=== PATIENT | female | born 1985 | race Caucasian/White ===

== ENCOUNTER 2017-06-19 13:01 | Emergency (ER) | payer OTHER ==
[2017-06-19 13:04] VITALS: BP 153/80; PULSE 97; RESP 15; TEMP 98.4; O2SAT 99
--- NOTE | 2017-06-19 13:46 | RADRPT ---
EXAM DATE/TIME: 06/19/2017 13:18 [place] COMPARISON: No previous studies available for comparison. INDICATIONS : Left ankle pain after twisting ankle with playing basketball. MEDICAL HISTORY : None. SURGICAL HISTORY : None. ENCOUNTER: Initial ACUITY: 3 days PAIN SCORE: 10/10 LOCATION: Left lateral ankle. FINDINGS: Soft tissue swelling lateral malleolus small avulsion tip of the lateral malleolus. Medial malleolus is intact. Alignment anatomic. CONCLUSION: Tiny avulsion fracture tip lateral malleolus. Soft tissue swelling evident.. Tony Elkins MD FACR on June 19, 2017 at 13:43 Board Certified Radiologist. This report was verified electronically.
[2017-06-19] MEDS ORDERED: TOPI100 PO (14:04)
[2017-06-19] MEDS ORDERED: SYNT175T PO (14:04)
[2017-06-19] MEDS ORDERED: VIST50CA PO (14:04)
--- NOTE | 2017-06-19 14:14 | PD ---
HPI Chief Complaint: Injury Time Seen by Provider: 14:00 Travel History International Travel<30 days: No Contact w/Intl Traveler<30days: No Traveled to known affect area: No History of Present Illness HPI 31-year-old female presents to the emergency room for evaluation of left ankle pain and swelling after inversion injury 4 days ago. Patient has had persistent pain since then that is worse with range of motion and ambulation. No radiation. She has been able to ambulate on it. She has been taking naproxen. She is currently residing at [facility]. No other chronic medical conditions or daily medications. [facility] Past Medical History LMP: 06/08/2017 Social History Tobacco Use: Yes Allergies-Medications (Allergen,Severity, Reaction): Coded Allergies: No Known Allergies (Unverified , 06/19/17) Reported Meds & Prescriptions Reported Meds & Active Scripts Active Ibuprofen 800 Mg Tab 800 Mg PO Q8H PRN Reported Vistaril (Hydroxyzine Pamoate) 50 Mg Cap 50 Mg PO BID Topamax (Topiramate) 100 Mg Tab 100 Mg PO BID Synthroid (Levothyroxine Sodium) 175 Mcg Tab 175 Mcg PO DAILY Review of Systems Except as stated in HPI: all other systems reviewed are Neg Physical Exam Narrative GENERAL: Well-nourished, well-developed female in no acute distress. Afebrile. Ambulatory. SKIN: Focused skin assessment warm/dry. Moderate ecchymosis of the left lateral ankle. HEAD: Normocephalic. EYES: No scleral icterus. No injection or drainage. NECK: Supple, trachea midline. No JVD or lymphadenopathy. CARDIOVASCULAR: Regular rate and rhythm without murmurs, gallops, or rubs. RESPIRATORY: Breath sounds equal bilaterally. No accessory muscle use. MUSCULOSKELETAL: No cyanosis. Mild edema of the left lateral malleolus with extreme tenderness to palpation. 2+ dorsalis pedis pulse. Full range of motion. Data Data Last Documented VS Vital Signs Date Time Temp Pulse Resp B/P (MAP) Pulse Ox O2 Delivery O2 Flow Rate FiO2 06/19/17 13:04 98.4 97 15 153/80 (104) 99 Orders Orders Ankle, Complete ([id number]) (06/19/17 ) Crutches (06/19/17 13:57) Ketorolac Inj (Toradol Inj) (06/19/17 14:30) Splint Or Brace Apply/Monitor (06/19/17 14:51) [facility] Medical Decision Making Medical Screen Exam Complete: Yes Emergency Medical Condition: Yes Medical Record Reviewed: Yes Differential Diagnosis Fracture, sprain, strain, contusion Narrative Course 31 year-old female presents to the emergency room for evaluation of left ankle pain and swelling after inversion injury 4 days ago. X-ray shows tiny avulsion fracture. Patient given Toradol for pain. She has been ambulatory since injuring it. It is neurovascularly intact with 2+ dorsalis pedis pulse. She has full range of motion. There is moderate ecchymosis and mild edema. Extreme tenderness to palpation of the left lateral malleolus. Because patient has been ambulatory, she is currently residing at [facility] and will not be able to follow up with orthopedist or PCP, and the fracture is tiny, patient will be discharged with fracture boot rather than posterior short leg splint. Discharged with ibuprofen and told to return for worsening symptoms. She understands and agrees to plan. Diagnosis Primary Impression: Avulsion fracture of left ankle Qualified Codes: S82.892A - Other fracture of left lower leg, initial encounter for closed fracture Referrals: Orthopaedic Surgeon Primary Care Physician Additional Instructions: Rest and drink plenty of fluids. Keep splint on until follow-up. Take ibuprofen with food as directed, as needed for pain. Elevate and apply ice to the affected area for 20 minutes at a time, as needed for pain and swelling. Follow-up with a primary care physician. Return to the emergency room for worsening symptoms. Scripts Ibuprofen (Ibuprofen) 800 Mg Tab 800 MG PO Q8H Y for Pain/Inflammation, #21 TAB 0 Refills Prov: Cody Briscoe MD 06/19/17 Disposition: 01 DISCHARGE HOME Condition: Stable Hayley Walker Jun 19, 2017 14:14
[2017-06-19] MEDS ORDERED: IBUP1TAB7 PO (14:15)
[2017-06-19] MEDS ORDERED: KETOROLAC TROMETHAMINE 60 MG/2 ML (IM) VIAL IM ONE (14:30)
== END 2017-06-19 15:29 | disposition home or self-care (01) ==
LOC: NEPK 13:01 → EDBD 13:01 → NEPK 15:29
DX: S82.62XA Displaced fracture of lateral malleolus of left fibula, initial encounter for closed fracture (principal); X50.9XXA Other and unspecified overexertion or strenuous movements or postures, initial encounter; Z72.0 Tobacco use; Z79.899 Other long term (current) drug therapy
CPT/HCPCS: 73610; 96372; 99285; E0113; J1885; L2114

== ENCOUNTER 2018-06-28 03:54 | Inpatient (IN) ==
[2018-06-28] MEDS ORDERED: Sod Chloride 0.9% Inj 1,000 ML IV.SIG SCH (04:15)
--- NOTE | 2018-06-28 04:33 | ED ---
HPI General Chief complaint: Psychiatric Symptoms Stated complaint: psych screen/VCSO Time Seen by Provider: 06/28/18 04:07 Source: police Mode of arrival: other Limitations: no limitations History of Present Illness HPI narrative: 32yo F was brought in as [place] [facility] because she said her life is over and texted her ex that she is weight. Pt said she has been drinking all day and is now nauseous and was vomiting. Also with mild frontal headache. She is tearful but denies any suicidal or homicidal ideations to me. She said she is depressed. Has history of PTSD, hypothyroid s/p thyroid resection for thyroid cancer and is on synthroid. Denies any fever, chest pain , sob, abdominal pain, focal weakness or numbness. Denies taking any medications to hurt herself. Related Data Home Medications Medication Instructions Recorded Confirmed levothyroxine [Synthroid] 06/28/18 Allergies Allergy/AdvReac Type Severity Reaction Status Date / Time No Known Allergies Allergy Unverified 06/19/17 13:07 Review of Systems ROS: all other systems reviewed are negative [facility] Medical History Medical History ADHD (Acute) Depressive disorder (Acute) Post traumatic stress disorder (PTSD) (Acute) Thyroid cancer (Acute) Social History Social History Substance History: No History of Abuse Second Hand Smoke Exposure: No Smoking Status: Former smoker Tobacco Type: Cigarettes How Often Do You Have a Drink Containing Alcohol: 2 to 3 times a week Immunization History Tetanus Immunization: >5 Years Exam Narrative Exam Narrative: GENERAL: 32yo F tearful. SKIN: Focused skin assessment warm/dry. HEAD: Atraumatic. Normocephalic. EYES: Pupils equal and round at 4mm bilaterally. EOMI. ENT: No nasal bleeding or discharge. Mucous membranes pink and moist. NECK: Trachea midline. No JVD. CARDIOVASCULAR: Regular rate and rhythm. No murmur appreciated. RESPIRATORY: No accessory muscle use. Clear to auscultation. Breath sounds equal bilaterally. GASTROINTESTINAL: Abdomen soft, non-tender, nondistended. MUSCULOSKELETAL: No obvious deformities. No clubbing. No cyanosis. No edema. NEUROLOGICAL: Awake and alert. No obvious cranial nerve deficits. Motor grossly within normal limits in all extremities. Sensation intact. Normal speech. PSYCHIATRIC: Tearful, depressed. Course Initial Documented Vital Signs Pulse Rate 89 06/28/18 04:04 Respiratory Rate 18 06/28/18 04:04 Blood Pressure 140/84 06/28/18 04:04 Pulse Oximetry 99 06/28/18 04:04 Last Documented Vital Signs Pulse Rate 89 06/28/18 04:04 Respiratory Rate 18 06/28/18 04:04 Blood Pressure 140/84 06/28/18 04:04 Pulse Oximetry 99 06/28/18 04:04 Medical Decision Making MDM Narrative Medical decision making narrative: 32yo F with depression was brought in as [place] Act. She is upset that her ex is seeing another woman and has been drinking and texting him today. Labs reviewed, WBC 11.2. H/H normal. CMP unremarkable. Lipase normal. TSH low at 0.195. Pt is on synthroid and can follow up with her primary care physician for this. Alcohol is elevated at 88. Medical Screen Exam Complete: Yes Emergency Medical Condition: Yes Differential Diagnosis Differential Diagnosis: Depression vs. drug use vs. alcohol intoxication vs. dehydration vs. electrolyte abnormality Lab Data Result diagrams: 06/28/18 04:32 06/28/18 04:32 Lab Results 06/28/18 06/28/18 Range/Units 04:32 04:32 WBC 11.2 H (4.0-11.0) th/mm3 RBC 5.06 (4.00-5.30) mil/mm3 Hgb 13.0 (11.6-15.3) gm/dL Hct 40.2 (35.0-46.0) % MCV 79.4 L (80.0-100.0) fL MCH 25.7 L (27.0-34.0) pg MCHC 32.4 (32.0-36.0) % RDW 15.5 (11.6-17.2) % Plt Count 415 (150-450) th/mm3 MPV 8.7 (7.0-11.0) fL Neut % (Auto) 76.0 H (16.0-70.0) % Lymph % (Auto) 16.8 (9.0-44.0) % [place] % (Auto) 6.1 (0.0-8.0) % Eos % (Auto) 0.6 (0.0-4.0) % Baso % (Auto) 0.5 (0.0-2.0) % Neut # (Auto) 8.5 H (1.8-7.7) th/mm3 Lymph # (Auto) 1.9 (1.0-4.8) th/mm3 [place] # (Auto) 0.7 (0.0-0.9) th/mm3 Eos # (Auto) 0.1 (0.0-0.4) th/mm3 Baso # (Auto) 0.1 (0.0-0.2) th/mm3 WBC Differential . Differential Comment Auto diff final Sodium 141 (136-145) meq/L Potassium 3.7 (3.5-5.1) meq/L Chloride 105 (98-107) meq/L Carbon Dioxide 28.2 (21.0-32.0) meq/L Anion Gap 8 (5-15) meq/L BUN 6 L (7-18) mg/dL Creatinine 0.91 (0.50-1.00) mg/dL Estimated GFR 72 L (>89) mL/min Random Glucose 105 (74-106) mg/dL Calcium 8.1 L (8.5-10.1) mg/dL Total Bilirubin 0.9 (0.2-1.0) mg/dL AST 34 (15-37) U/L ALT 23 (10-53) U/L Alkaline Phosphatase 90 (45-117) U/L Total Protein 8.6 H (6.4-8.2) g/dL Albumin 3.9 (3.4-5.0) g/dL Lipase 87 (73-393) U/L TSH 0.195 L (0.358-3.740) uIU/mL Serum Alcohol 88 H (0-5) mg/dL Discharge Plan Discharge Disposition Patient Disposition: Sign Out(ED Internal Use Only) Discharge Details Diagnosis: Depression Physicians Team ED Provider: Angelique Celaya Primary Care Provider: Admin Clinic,Physician 's Rxs /Orders / Referrals /Forms Prescriptions: No Action levothyroxine [Synthroid] 75 mcg Tablet RF: 0 Status ED Status: Medically Cleared
[2018-06-28 04:47] LABS: Baso # (Auto) 0.1 th/mm3 (0.0-0.2); Baso % (Auto) 0.5 % (0.0-2.0); Eos # (Auto) 0.1 th/mm3 (0.0-0.4); Eos % (Auto) 0.6 % (0.0-4.0); Hematocrit 40.2 % (35.0-46.0); Lymph # (Auto) 1.9 th/mm3 (1.0-4.8); Lymph % (Auto) 16.8 % (9.0-44.0); Mean Corpuscular HGB Conc 32.4 % (32.0-36.0); Mean Corpuscular Hemoglobin 25.7 pg (27.0-34.0); Mean Corpuscular Volume 79.4 fL (80.0-100.0); Mean Platelet Volume 8.7 fL (7.0-11.0); Mono # (Auto) 0.7 th/mm3 (0.0-0.9); Mono % (Auto) 6.1 % (0.0-8.0); Neut # (Auto) 8.5 th/mm3 (1.8-7.7); Platelet Count 415 th/mm3 (150-450); Red Blood Count 5.06 mil/mm3 (4.00-5.30); Red Cell Distribution Width 15.5 % (11.6-17.2); White Blood Count 11.2 th/mm3 (4.0-11.0)
[2018-06-28 05:09] LABS: Alkaline Phosphatase 90 U/L (45-117); Thyroid Stimulating Hormone 0.195 uIU/mL (0.358-3.740); Total Protein 8.6 g/dL (6.4-8.2)
[2018-06-28 05:12] LABS: Alanine Aminotransferase 23 U/L (10-53); Albumin 3.9 g/dL (3.4-5.0); Anion Gap 8 meq/L (5-15); Aspartate Aminotransferase 34 U/L (15-37); Blood Urea Nitrogen 6 mg/dL (7-18); Calcium 8.1 mg/dL (8.5-10.1); Carbon Dioxide 28.2 meq/L (21.0-32.0); Chloride 105 meq/L (98-107); Glomerular Filtration Rate 72 mL/min (>89); Glucose,Random 105 mg/dL (74-106); Lipase 87 U/L (73-393); Sodium 141 meq/L (136-145)
[2018-06-28 05:13] LABS: Alcohol 88 mg/dL (0-5); Potassium 3.7 meq/L (3.5-5.1)
[2018-06-28 06:41] LABS: Amphetamine Screen,Urine Pos (Neg); Barbiturate Screen,Urine Neg (Neg); Cannabinoid Screen,Urine Pos (Neg); Cocaine Screen,Urine Neg (Neg)
[2018-06-28 06:42] LABS: Opiate Screen,Urine Neg (Neg)
[2018-06-28] MEDS ORDERED: Aluminum/Magnesium/Simethacone Susp 30 ML UDC PO PRN (13:05)
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
[2018-06-28] MEDS: LORazepam 0.5 MG Tablet PO PRN ×2 (14:06→20:38)
[2018-06-28] MEDS: Venlafaxine XR 37.5 MG Capsule PO SCH (14:31)
[2018-06-29] MEDS: Levothyroxine 150 MCG Tablet PO SCH ×2 (07:09→09:55)
[2018-06-29] MEDS: LORazepam 0.5 MG Tablet PO PRN ×3 (07:38→23:46)
[2018-06-29] MEDS: Venlafaxine XR 37.5 MG Capsule PO SCH (08:29)
[2018-06-29 11:39] LABS: Calcium 8.1 mg/dL (8.5-10.1); Carbon Dioxide 27.8 meq/L (21.0-32.0); Potassium 3.6 meq/L (3.5-5.1)
[2018-06-29 11:41] LABS: Chol/HDL Ratio 2.14 Ratio
--- NOTE | 2018-06-29 13:05 | P.HPPSY ---
Provisional Diagnosis Admission Date: June 28, 2018 13:04 Competence Certification of Person's Competence To Provide Express and Informed Consent I have personally examined Renee Archuleta, a person being served at [facility] on, June 29, 2018 [id number]. Express and informed consent means consent voluntarily given in writing, by a competent person, after sufficient explanation and disclosure of the subject matter involved to enable the person to make a knowing and willful decision without any element of force, fraud, deceit, duress, or other form of constraint or coercion. This person is 18 years of age or older, is not now known to be incompetent to consent to treatment with a guardian advocate, and does not have a health care surrogate or proxy currently making medical treatment decisions. I have found this person to be one of the following: [] Competent to provide express and informed consent, as defined above, for voluntary admission to this facility and is competent to provide express and informed consent for treatment. He/she has the consistent capacity to make well reasoned, willful, and knowing decisions concerning his or her medical or mental health treatment. The person fully and consistently understands the purpose of the admission for examination/placement and is fully capable of personally exercising all rights assured under [place] [X] Incompetent to provide express and informed consent to voluntary admission, and this is incompetent to provide express and informed consent to treatment. The person must be transferred to involuntary status and a petition for a guardian advocate filed with the Circuit Court. [] Refusing to provide express and informed consent to voluntary admission but is competent to provide express and informed consent for treatment. The person must be discharged or transferred to involuntary status. Form shall be completed within 24 hours of a person's arrival at the receiving facility and filed in the clinical record of each person: 1. Admitted on a voluntary basis 2. Permitted to provide express and informed consent to his/her own treatment 3. Allowed to transfer from involuntary to voluntary status 4. Prior to permitting a person to consent to his or her own treatment after having been previously found incompetent to consent to treatment. History of Present Illness Capacity: Lacks capacity Chief Complaint: Suicidal ideation History of Present Illness: Patient is a 32-year-old female with a history of PTSD, MDD, ADHD and multiple suicide attempts admitted Via [facility] act for acute alcohol intoxication and making suicidal statements. Patient is pleasant but minimizing her reasons for admission and becomes hysterical at the end of the interview when she realizes she will not be going home today. Patient describes multiple stressors with the main one being her relationship with her ex-. Before admission, she found out that he was seeing somebody else and she started drinking. She drank a bottle of whiskey and one day but claims she does not drink regularly or at all. She is also prescribed Adderall and says she has a medical marijuana card. [facility] but has been refusing any treatment for major depressive disorder or PTSD. At this time patient denies suicidal or homicidal ideation intent or plan. Per record she sent text message saying that she is weight. Past psych: History of 2 suicide attempts. Last one was a year ago when she cut herself. Patient does not regularly cut. Her other suicide attempt was holding a pistol with the plans to shoot herself. She does not have any access to firearms at this time. In the past she has been treated with a combination of Prozac, Zyprexa, BuSpar, Strattera and was recently recommended Topamax. Patient is unsure if she has been diagnosed with bipolar or not. She has outpatient therapy at the [facility] and sees a Dr. Johnson. Past medical: See chart Past Famhx: "Depression runs in the family." Past Social: Last year patient got arrested for bizarre behavior where she was sitting in somebody else's car and wandering the neighborhood. She has a felony on her record as a result of this incident. However, patient claims that she was hallucinating at this time because of her antidepressants wherein she was seeing and hearing things, voices name Alzaro telling her to sit in somebody else's car. 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 She has 1 child. She denies a history of abusing substances. - Inpatient Certification I certify that the inpatient services were ordered in accordance with Medicare regulations governing the order. This includes certification that hospital inpatient services are reasonable and necessary and in the case of services not specified as inpatient-only under 42 CFR 419.22(n), that they are appropriately provided as inpatient services in accordance to with the 2-midnight benchmark under 43 CFR 412.3(e) I certify that inpatient psychiatric hospital services are medically necessary. Evaluation and treatment and/or diagnostic testing are expected to improve the patient's condition. The patient needs on a daily basis, active treatment furnished directly by or requiring the supervision of inpatient psychiatric facility personnel. Estimated Total Length of Stay (Days): 4 Plans for Post Hospital Care: Home Review of Systems All other systems reviewed negative except as stated in HPI PMFSH - History History Provided By: Patient - Medical History Medical History: Medical History (Last Reviewed 06/29/18 @ 13:03 by Levon Burr DO) ADHD Depressive disorder Post traumatic stress disorder (PTSD) Thyroid cancer - Tobacco History Second Hand Smoke Exposure: No Tobacco Use In Past 30 Days: No Smoking Status: Never smoker Tobacco Type: Cigarettes - Alcohol History How Often Do You Have a Drink Containing Alcohol: Monthly or less - Substance Use History Substance History: No History of Abuse - Travel History Recent Travel in the [facility] Within the Last 8 Weeks: No Recent Travel Out of the Country Within the Last 8 Weeks: No - Immunization History Tetanus Immunization: Unsure Hx Influenza Vaccine This Season: No Medications and Allergies Active Medications: Active Medications Al Hydrox/Mg Hydrox/Simethicone (Mag-Al Plus Susp Liq) 30 ml PO Q6H PRN PRN Reason: DYSPEPSIA Al Hydroxide/Mg Hydroxide (Milk Of Magnesia Liq) 30 ml PO Q12H PRN PRN Reason: Mild Constipation Levothyroxine Sodium (Synthroid) 150 mcg PO DAILY [facility] Last Admin: 06/29/18 09:55 Dose: 150 mcg Lorazepam (Ativan) 0.5 mg PO Q8H PRN PRN Reason: ANXIETY Last Admin: 06/29/18 07:38 Dose: 0.5 mg Venlafaxine HCl (Effexor Xr) 37.5 mg PO DAILY [facility] Last Admin: 06/29/18 08:29 Dose: 37.5 mg Allergies Allergy/AdvReac Type Severity Reaction Status Date / Time hydroxyzine [From Vistaril] AdvReac Unknown Tachycardia Verified 06/28/18 13:20 Home Medications Medication Instructions Recorded Confirmed Type dextroamphetamine-amphetamine 30 mg PO DAILY 06/28/18 06/28/18 History [Adderall XR] levothyroxine [Synthroid] 150 mcg PO DAILY 06/28/18 06/28/18 History Results - Labs CBC & Chem 7: 06/28/18 04:32 06/29/18 10:20 Labs: Laboratory Results - last 24 hr 06/29/18 10:20 Sodium 139 Potassium 3.6 Chloride 105 Carbon Dioxide 27.8 Anion Gap 6 BUN 9 Creatinine 0.81 Estimated GFR 82 L Random Glucose 100 Calcium 8.1 L Triglycerides 81 Cholesterol 116 L LDL Cholesterol, Calc 46 HDL Cholesterol 54.0 Cholesterol/HDL Ratio 2.14 Exam Vital signs: Vital Signs 06/28/18 16:45 06/29/18 05:20 Temperature 98.0 F 98.4 F Pulse Rate 88 69 Respiratory Rate 17 18 Blood Pressure 104/82 125/68 Pulse Oximetry 99 Intake & Output 06/28/18 06/29/18 06/29/18 18:59 06:59 18:59 Intake Total 480 / 480 580 / 580 Balance 480 / 480 580 / 580 Weight 85.729 kg Intake: Oral 480 / 480 480 / 480 Oral Supplement 100 / 100 Other: # Voids 2 # Bowel Movements 0 Weight On Admission 85.729 kg Mental Status Examination Appearance: Appropriate, Disheveled Consciousness: Alert Orientation: x4 Motor Activity: Normal gait Speech: Unremarkable Language: Adequate Fund of Knowledge: Adequate Attention and Concentration: Adequate Memory: Unremarkable Mood: Sad Affect: Irritable, Sad, Anxious Thought Process & Associations: Intact, Logical Thought Content: Appropriate Hallucination Type: None Delusion Type: None Suicidal Ideation: No Suicidal Plan: No Suicidal Intention: No Homicidal Ideation: No Homicidal Plan: No Homicidal Intention: No Insight: Fair Judgment: Impulsive Assessment and Plan - Assessment (1) Major depressive disorder, recurrent severe without psychotic features Code(s): F33.2 - Major depressive disorder, recurrent severe without psychotic features Status: Acute - Plan Plan: Given patient's outbursts when she realized she would have to stay and poor insight and evasiveness into her suicidal statements are recommend that she be petitioned. She remains resistant to antidepressant medication. There are no signs of alcohol withdrawal at this time Justification for Continued Inpatient Stay: Patient would decompensate in a less restrictive setting
[2018-06-29 14:10] LABS: Hemoglobin A1c 5.5 % (4.3-6.0)
--- NOTE | 2018-06-29 17:59 | ECG ---
Date Performed: 06/29/2018 Time Performed: 12:05:30 PTAGE: 32 years EKG: Sinus rhythm NORMAL ECG NO PREVIOUS TRACING DOCTOR: Ankit Banks Interpretating Date/Time 06/29/2018 17:57:12
[2018-06-30] MEDS: LORazepam 0.5 MG Tablet PO PRN ×2 (08:31→16:23)
--- NOTE | 2018-06-30 12:40 | P.CONPSY ---
Provisional Diagnosis Admission Date: June 28, 2018 13:04 [place] 1. Adjustment disorder with mixed disturbance of emotions and conduct Rule out major depressive episode 2. History of PTSD [place].: 1. Some cluster B personality traits History of Present Illness Service: Psychiatry Consult date: 06/30/18 Requesting Physician: Levon Burr Reason for Consult: Second opinion for involuntary psychiatric hospitalization Primary [facility] Provider[facility] History of Present Illness: From Dr. Burr's H&P: Patient is a 32-year-old female with a history of PTSD, MDD, ADHD and multiple suicide attempts admitted Via [facility] act for acute alcohol intoxication and making suicidal statements. Patient is pleasant but minimizing her reasons for admission and becomes hysterical at the end of the interview when she realizes she will not be going home today. Patient describes multiple stressors with the main one being her relationship with her ex-. Before admission, she found out that he was seeing somebody else and she started drinking. She drank a bottle of whiskey and one day but claims she does not drink regularly or at all. She is also prescribed Adderall and says she has a medical marijuana card. She gets outpatient [facility] services at [facility] but has been refusing any treatment for major depressive disorder or PTSD. At this time patient denies suicidal or homicidal ideation intent or plan. Per record she sent text message saying that she is weight. Past psych: History of 2 suicide attempts. Last one was a year ago when she cut herself. Patient does not regularly cut. Her other suicide attempt was holding a pistol with the plans to shoot herself. She does not have any access to firearms at this time. In the past she has been treated with a combination of Prozac, Zyprexa, BuSpar, Strattera and was recently recommended Topamax. Patient is unsure if she has been diagnosed with bipolar or not. She has outpatient therapy at the [facility] and sees a Dr. Johnson. Past medical: See chart Past Famhx: "Depression runs in the family." Past Social: Last year patient got arrested for bizarre behavior where she was sitting in somebody else's car and wandering the neighborhood. She has a felony on her record as a result of this incident. However, patient claims that she was hallucinating at this time because of her antidepressants wherein she was seeing and hearing things, voices name Lazaro telling her to sit in somebody else's car. 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 She has 1 child. She denies a history of abusing substances. On my examination today, 06/30: Patient seen and examined with nurse. Chart reviewed. Case discussed with nursing staff. I have discussed with patient the purpose of my evaluation today. On my examination today, the patient insists that she did not make any sort of suicidal threat prior to admission. She says that she was having an argument with her ex- and that he called 911 to get her to stop crying. Patient admits to feeling depressed but says that this feeling tends to "come and go." She denies any feelings of hopelessness or worthlessness. Affect is mildly labile. Cluster B personality traits are noted. She denies any hallucinations. No delusional material elicited. No hypomanic or manic symptoms. Remainder of the psychiatric ROS is negative. No acute physical complaints. Past psychiatric history: The patient reports a history of PTSD. She follows with a mental health clinician through the [facility]. She reports that she was psychiatrically admitted once a little over a year ago for "emotions." She reports 2 previous suicide attempts in her 20s by cutting. She does note that she has been on Effexor in the past and has experienced sexual dysfunction, however she feels that the benefits from this medication outweigh this particular risk and would like to continue with this medication, and I do note that Effexor has been ordered. Family history: The patient reports that she is not close with her biological family and is unsure of her family psychiatric history. I do note that she reported a family history of depression to Dr. Burr. Chemical dependency history: Patient denies any use of drugs or alcohol, although she did have an elevated alcohol level and significant toxicological findings on presentation here. Social history: The patient reports that she lives with her ex-. Her daughter is in [place] with her mother. 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 Review of Systems other (Limited ROS is negative) PMFSH - History History Provided By: Patient - Medical History Medical History: Medical History (Last Reviewed 06/29/18 @ 13:03 by Levon Burr DO) ADHD Depressive disorder Post traumatic stress disorder (PTSD) Thyroid cancer - Tobacco History Second Hand Smoke Exposure: No Tobacco Use In Past 30 Days: No Smoking Status: Never smoker Tobacco Type: Cigarettes - Alcohol History How Often Do You Have a Drink Containing Alcohol: Monthly or less - Substance Use History Substance History: No History of Abuse - Substance Use Type Alcohol Status: Active Route Used: By Mouth Frequency: Ocassionally,during last use drank 1 1/2 pts of whiskey Last Used: One or two days ago Reason for Use: Calm Down Comment: Patient states she self medicates, she states use is occasional but amount fluctuates. Patient also uses CBD oil. - Travel History Recent Travel in the [place] Within the Last 8 Weeks: No Recent Travel Out of the Country Within the Last 8 Weeks: No - Immunization History Tetanus Immunization: Unsure Hx Influenza Vaccine This Season: No Medications and Allergies Active Medications: Active Medications Al Hydrox/Mg Hydrox/Simethicone (Mag-Al Plus Susp Liq) 30 ml PO Q6H PRN PRN Reason: DYSPEPSIA Al Hydroxide/Mg Hydroxide (Milk Of Magnesia Liq) 30 ml PO Q12H PRN PRN Reason: Mild Constipation Levothyroxine Sodium (Synthroid) 150 mcg PO DAILY [facility] Last Admin: 06/29/18 09:55 Dose: 150 mcg Lorazepam (Ativan) 0.5 mg PO Q8H PRN PRN Reason: ANXIETY Last Admin: 06/30/18 08:31 Dose: 0.5 mg Venlafaxine HCl (Effexor Xr) 37.5 mg PO DAILY [facility] Last Admin: 06/29/18 08:29 Dose: 37.5 mg Allergies Allergy/AdvReac Type Severity Reaction Status Date / Time hydroxyzine [From Vistaril] AdvReac Unknown Tachycardia Verified 06/28/18 13:20 Home Medications Medication Instructions Recorded Confirmed Type dextroamphetamine-amphetamine 30 mg PO DAILY 06/28/18 06/28/18 History [Adderall XR] levothyroxine [Synthroid] 150 mcg PO DAILY 06/28/18 06/28/18 History Exam Vital signs: Vital Signs 06/29/18 17:04 06/30/18 06:12 Temperature 98.8 F 98.1 F Pulse Rate 67 66 Respiratory Rate 18 16 Blood Pressure 132/65 107/68 Pulse Oximetry 98 99 Intake & Output 06/29/18 06/30/18 06/30/18 18:59 06:59 18:59 Intake Total 820 / 820 Balance 820 / 820 Intake: Oral 720 / 720 Oral Supplement 100 / 100 Other: # Voids 2 # Bowel Movements 0 Narrative: Physical examination was completed by the ED provider. On my examination today , the patient appears to be in no acute physical distress. No motor abnormalities noted. No signs of intoxication or withdrawal noted. Labs and vital signs reviewed: Laboratory Tests 06/28/18 06/28/18 06/28/18 04:32 04:32 06:10 WBC 11.2 H RBC 5.06 Hgb 13.0 Hct 40.2 MCV 79.4 L MCH 25.7 L MCHC 32.4 RDW 15.5 Plt Count 415 MPV 8.7 Neut % (Auto) 76.0 H Lymph % (Auto) 16.8 [place] % (Auto) 6.1 Eos % (Auto) 0.6 Baso % (Auto) 0.5 Neut # (Auto) 8.5 H Lymph # (Auto) 1.9 [place] # (Auto) 0.7 Eos # (Auto) 0.1 Baso # (Auto) 0.1 WBC Differential . Differential Comment Auto diff final Sodium 141 Potassium 3.7 Chloride 105 Carbon Dioxide 28.2 Anion Gap 8 BUN 6 L Creatinine 0.91 Estimated GFR 72 L Random Glucose 105 Hemoglobin A1c Calcium 8.1 L Total Bilirubin 0.9 AST 34 ALT 23 Alkaline Phosphatase 90 Total Protein 8.6 H Albumin 3.9 Triglycerides Cholesterol LDL Cholesterol, Calc HDL Cholesterol Cholesterol/HDL Ratio Lipase 87 TSH 0.195 L Urine Opiates Screen Neg Ur Barbiturates Screen Neg Ur Amphetamines Screen Pos H U Benzodiazepines Scrn Neg Urine Cocaine Screen Neg U Cannabinoids Screen Pos H Serum Alcohol 88 H 06/29/18 06/29/18 10:20 10:20 WBC RBC Hgb Hct MCV MCH MCHC RDW Plt Count MPV Neut % (Auto) Lymph % (Auto) [place] % (Auto) Eos % (Auto) Baso % (Auto) Neut # (Auto) Lymph # (Auto) [place] # (Auto) Eos # (Auto) Baso # (Auto) WBC Differential Differential Comment Sodium 139 Potassium 3.6 Chloride 105 Carbon Dioxide 27.8 Anion Gap 6 BUN 9 Creatinine 0.81 Estimated GFR 82 L Random Glucose 100 Hemoglobin A1c 5.5 Calcium 8.1 L Total Bilirubin AST ALT Alkaline Phosphatase Total Protein Albumin Triglycerides 81 Cholesterol 116 L LDL Cholesterol, Calc 46 HDL Cholesterol 54.0 Cholesterol/HDL Ratio 2.14 Lipase TSH Urine Opiates Screen Ur Barbiturates Screen Ur Amphetamines Screen U Benzodiazepines Scrn Urine Cocaine Screen U Cannabinoids Screen Serum Alcohol ED [id number] test negative. Low TSH noted. Mental Status Examination Appearance: Appropriate Consciousness: Alert Orientation: x4 Motor Activity: Other (No motor abnormalities noted) Speech: Unremarkable Language: Adequate Fund of Knowledge: Adequate Attention and Concentration: Adequate Memory: Unremarkable Mood: Other (Depressed) Affect: Labile (Mild) Thought Process & Associations: Intact, Logical Thought Content: Appropriate Hallucination Type: None Delusion Type: None Suicidal Ideation: No (Unclear whether patient is reliable to contract for safety) Suicidal Plan: No Suicidal Intention: No Homicidal Ideation: No Homicidal Plan: No Homicidal Intention: No Insight: Fair Judgment: Impulsive Assessment and Plan - Assessment (1) Adjustment disorder with mixed disturbance of emotions and conduct Code(s): F43.25 - Adjustment disorder with mixed disturbance of emotions and conduct Status: Acute - Plan Plan: Given the circumstances of the patient's presentation here and her presentation on my examination today, I concur with Dr. Burr that the patient meets criteria for involuntary psychiatric hospitalization under the [facility] act. Main concern here is for potential for risk of harm to self, and ongoing inpatient observation is needed to help clarify her risk for ongoing self-harm. I have completed the second opinion paperwork. I will check a free T4 to follow-up on decreased TSH. I will resume the patient's Effexor, which has been placed on hold for unclear reasons. Continue to monitor on the inpatient unit. Continue other medications and care as ordered. Justification for Continued Inpatient Stay: Monitoring for impairment in safety Discharge Planning: Pending outcome of observation Request Healthcare Surrogate/Guardian Advocate?: No
[2018-06-30] MEDS: Levothyroxine 150 MCG Tablet PO SCH (19:45)
[2018-07-01] MEDS: LORazepam 0.5 MG Tablet PO PRN ×2 (00:09→08:40)
[2018-07-01] MEDS ORDERED: Levothyroxine 150 MCG Tablet PO SCH (06:00)
[2018-07-01] MEDS: Venlafaxine XR 37.5 MG Capsule PO SCH (08:40)
--- NOTE | 2018-07-01 11:21 | P.DSPSY ---
Psychiatry Discharge Summary Inpatient Psychiatric care?: Yes Advance Directives: No Mental Health Advance Directive: No Health Care Proxy: No - Admission Admission Date: June 28, 2018 13:04 - Admission Diagnosis (1) Major depressive disorder, recurrent severe without psychotic features Code(s): F33.2 - Major depressive disorder, recurrent severe without psychotic features Brief History: Patient is a 32-year-old female with a history of PTSD, MDD, ADHD and multiple suicide attempts admitted Via [facility] act for acute alcohol intoxication and making suicidal statements. Patient is pleasant but minimizing her reasons for admission and becomes hysterical at the end of the interview when she realizes she will not be going home today. Patient describes multiple stressors with the main one being her relationship with her ex-. Before admission, she found out that he was seeing somebody else and she started drinking. She drank a bottle of whiskey and one day but claims she does not drink regularly or at all. She is also prescribed Adderall and says she has a medical marijuana card. She [facility] but has been refusing any treatment for major depressive disorder or PTSD. At this time patient denies suicidal or homicidal ideation intent or plan. Per record she sent text message saying that she is weight. Past psych: History of 2 suicide attempts. Last one was a year ago when she cut herself. Patient does not regularly cut. Her other suicide attempt was holding a pistol with the plans to shoot herself. She does not have any access to firearms at this time. In the past she has been treated with a combination of Prozac, Zyprexa, BuSpar, Strattera and was recently recommended Topamax. Patient is unsure if she has been diagnosed with bipolar or not. She has outpatient therapy at the [facility] and sees a Dr. Johnson. Past medical: See chart Past Famhx: "Depression runs in the family." Past Social: Last year patient got arrested for bizarre behavior where she was sitting in somebody else's car and wandering the neighborhood. She has a felony on her record as a result of this incident. However, patient claims that she was hallucinating at this time because of her antidepressants wherein she was seeing and hearing things, voices name Lazaro telling her to sit in somebody else's car. 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 She has 1 child. She denies a history of abusing substances. Tobacco Use In Past 30 Days: No How Often Do You Have a Drink Containing Alcohol: Monthly or less Hospital Course: Patient was admitted to a locked, inpatient psychiatric unit. Appropriate precautions were in place throughout patient's hospital stay. Patient was seen and examined on the unit by psychiatry and also visited by counselor. Psychotropic medications were adjusted. Patient tolerated medication changes well without side effects. There was no evidence of any suicidality or homicidality on the inpatient unit. There was no evidence of self-care deficit. On the day of discharge: Patient seen and examined with nurseMagaly. Chart reviewed. Case discussed with nursing staff. No behavioral issues noted overnight. Case discussed with counselor. On my examination today, the patient is requesting discharge from the inpatient psychiatric unit today. She denies any suicidal or homicidal ideation, intent or plan. She says that she wants to live for her daughter. Patient reports that her mood is improved versus admission, and I can elicit no severe depressive or hypomanic/manic symptoms. She reports that her PTSD symptoms are well controlled. She denies significant anxiety. No audiovisual hallucinations, no delusional material elicited. There is no evidence of impairment in reality construction. 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 She has no physical complaints. With the patient's permission, I have obtained collateral information from her mother at [facility]. Ms. Nur has been in communication with patient while patient has been hospitalized. She is comfortable with the patient being discharged today and has no concerns about the patient posing a risk of harm to self or others. She believes, as the patient has maintained, that her presenting text message was misinterpreted and does not believe that this was a genuine suicidal threat. She admits that the patient has had "her ups and downs " in the past, and mother reports that she is well versed in how to manage the patient's psychiatric condition. Ms. Nur plans to have the patient come stay with her after discharge. I have recommended that she secure the home environment of potential means of harm to self or others including but not limited to guns, knives and medications. I have further recommended that she secure the medication that I have prescribed to the patient on discharge. I have discussed with Ms. Nur how to obtain urgent mental health help for patient should the need arise including [facility] act and ex parte. Weighing the acute, chronic and protective factors and based on the available evidence, I hoistman that the patient no longer meets criteria for involuntary psychiatric hospitalization under the Hall act. There is no evidence of imminent risk of harm to self or others, nor is there evidence of self-care deficit to substantiate ongoing involuntary psychiatric hospitalization. The patient is requesting discharge from the inpatient psychiatric unit today, and I have no basis to retain her over her objection. Patient will be discharged home today with psychiatric follow-up as arranged by the counselor. Patient is also to follow-up with primary care and with her cork insulation installer. I have discussed with the patient that her free T4 is somewhat elevated, and an adjustment in her Synthroid dose may be needed. I have counseled the patient to abstain from substances of abuse. Patient acknowledges the role of alcohol use in the circumstances of her presentation here. She reports that the amphetamine and THC are medically prescribed to her, the latter in the form of CBD oil. I have counseled the patient regarding warning signs for need to return to the psychiatric emergency room as part of a general safety plan. With the benefit of observation on the unit, it is suspected that presenting behavior was either misinterpreted or was a function of alcohol intoxication, now resolved. A decompensated mood disorder is not suspected in this patient at this time. - Discharge Discharge Date: 07/01/18 - Discharge Diagnosis (1) Adjustment disorder with mixed disturbance of emotions and conduct Diagnosis: Principal (resolved) Code(s): F43.25 - Adjustment disorder with mixed disturbance of emotions and conduct Status: Acute (2) History of post traumatic stress disorder Diagnosis: Secondary Code(s): Z86.59 - Personal history of other mental and behavioral disorders Status: Chronic Discharge Disposition: Home - Discharge Instructions Discharge Diet: Regular Diet Activities You Can Perform: Weight Bearing As Tolerat - Discharge Time > 30 minutes Mental Status Examination Appearance: Appropriate Consciousness: Alert Orientation: x4 Motor Activity: Other (No abnormal motor movements noted) Speech: Unremarkable Language: Adequate Fund of Knowledge: Adequate Attention and Concentration: Adequate Memory: Unremarkable Mood: Appropriate Affect: Appropriate Thought Process & Associations: Intact, Logical, Goal directed, Linear Thought Content: Appropriate Hallucination Type: None Delusion Type: None Suicidal Ideation: No Suicidal Plan: No Suicidal Intention: No Homicidal Ideation: No Homicidal Plan: No Homicidal Intention: No Mental Status Exam Remarks: Insight and judgment are fair Discharge/Advance Care Plan - Results Vital Signs: Last Vital Signs Temp 98.5 F 07/01/18 05:39 Pulse 70 07/01/18 05:39 Resp 16 07/01/18 05:39 BP 114/69 07/01/18 05:39 Pulse Ox 99 07/01/18 05:39 Lab Results: Abnormal Lab Results 06/29/18 10:20 Free T4 1.51 H Laboratory Results Hemoglobin A1c 5.5 % (4.3-6.0) 06/29/18 10:20 Triglycerides 81 mg/dL (42-150) 06/29/18 10:20 Cholesterol 116 mg/dL (120-200) L 06/29/18 10:20 LDL Cholesterol, Calc 46 mg/dL (0-99) 06/29/18 10:20 HDL Cholesterol 54.0 mg/dL (40.0-60.0) 06/29/18 10:20 TSH 0.195 uIU/mL (0.358-3.740) L 06/28/18 04:32 Free T4 1.51 ng/dL (0.76-1.46) H 06/29/18 10:20 Summary of Procedures: None done Pending Results: None - Medications Number of antipsychotic medications at discharge: 0 - Discharge Care Plan Goals to Promote Your Health: * To prevent worsening of your condition and complications * To maintain your health at the optimal level Directions to Meet Your Goals: Take your medications as prescribed Follow your dietary instruction Follow activity as directed Keep your appointments as scheduled Take your immunizations and boosters as scheduled If your symptoms worsen call your PCP, if no PCP go to Urgent Care Center or Emergency Room For 05/02 questions related to your inpatient stay or results of tests pending at discharge, please contact Dr. Ankit Fraire MD at Smoking is Dangerous to Your Health. Avoid second hand smoking
== END 2018-07-01 13:35 | disposition home or self-care (01) ==
LOC: NEPE 03:54 → NEDH 13:04 → H260 16:04
PROVIDERS: ADMIT Psychiatry & Neurology Psychiatry; ATTEND Psychiatry & Neurology Psychiatry